=== PATIENT | male | born 1965 | race African-American/Black ===

== ENCOUNTER 2017-06-16 13:44 | Observation (INO) | payer OTHER ==
[2017-06-16 14:37] LABS: Troponin I Less than 0.010 ng/mL (< 0.028)
--- NOTE | 2017-06-16 15:08 | HP ---
PRIMARY CARE PHYSICIAN: Dr. Deshaun Moore. REASON FOR ADMISSION: Transfer from [facility] for chest pain. HISTORY OF PRESENT ILLNESS: A 52-year-old -[place] male who initially went to [facility] for evaluation of chest pain. Patient reports that at workplace, he initially felt tin gling and numbness sensation in his left arm and subsequently he was experiencing left sided of chest pressure. He did not have any associated nausea, vomiting or diaphoresis, but chest pressure was so intense that lasted for about 10-15 minutes. Patient went upstairs at work place to get his aspirin from medical department and that did not increase or decrease his pain. The patient's officer told him to go to ER for evaluation. When he arrived to the emergency room, his pain was subsided. At [facility], he was hemodynamically stable. Patient reports that for the last couple of days, he was having upper respi ratory symptoms, but he was not taking any medication. He denies any acid reflux. He denies any epi gastric pain. He denies any fever, chills, cough, shortness of breath. At [facility], he was given Lovenox 1 mg per kg, aspirin 162 mg, and nitro patch. S ubsequently considering NSTEMI, the patient was transferred to our hospital for further evaluation. Patient reports that a couple of years ago, he went to the emergency room and at that time, he had ex actly similar symptoms and he was instructed to get stress test done, but patient reports that he nev er had any stress test done and he did not follow up with the primary care physician. He is a smoker and he uses periodic marijuana as well as he drinks beer every day basis. He has family history of DE to his father and he is not knowing his cholesterol status. REVIEW OF SYSTEMS: The following complete review of systems was negative, unless otherwise mentioned in the HPI or below: Constitutional: Weight loss or gain, ability to conduct usual activities. Skin: Rash, itching. Eyes: Double vision, pain. ENT/Mouth: Nose bleeding, neck stiffness, pain, tenderness. Cardiovascular: Palpitations, dyspnea on exertion, orthopnea. Respiratory: Shortness of breath, wheezing, cough, hemoptysis, fever or night sweats. Gastrointestinal: Poor appetite, abdominal pain, heartburn, nausea, vomiting, constipation, or diarr hea. Genitourinary: Urgency, frequency, dysuria, nocturia. Musculoskeletal: Pain, swelling. Neurologic/Psychiatric: Anxiety, depression. Allergy/Immunologic: Skin rash, bleeding tendency. Please see my HPI for pertinent positives and negatives. All other review of systems reviewed and ne gative except as mentioned in the HPI. ALLERGIES: No known drug allergies. CURRENT HOME MEDICATIONS: The patient is not taking any prescribed or non-prescribed medication. PAST MEDICAL HISTORY: Patient denies any previous medical history. PAST SURGICAL HISTORY: Right knee replacement. PAST PSYCHIATRIC HISTORY: Reviewed and negative. SOCIAL HISTORY: Patient smokes about half pack per day for the last several years. He drinks alcoho l 3-4 beers on a daily basis. He smokes marijuana periodically. He denies any other illicit drug ab use. FAMILY HISTORY: Positive for coronary artery disease to his father, diabetes, hypertension runs josé miguel g several family members. EMERGENCY ROOM COURSE: Patient is given Lovenox 1 mg per kg, aspirin 162 mg and nitropatch at [facility]. PHYSICAL EXAMINATION: VITAL SIGNS: Here in our emergency room, blood pressure 114/86, pulse 79, respiratory rate 22, tempe rature 98.2, saturation 96% on room air, weight 78.02 kilograms. GENERAL: Patient is currently alert, awake, no obvious acute distress. HEAD: Normocephalic, atraumatic. EYES: Pupils round, reactive to light. Extraocular muscles intact. ENT: Oropharynx within normal limits. Moist mucous membranes. No oral lesions. No pharyngeal eryt valeria, no exudates. NECK: Supple, no JVD, no thyromegaly, no carotid bruit, no jugular venous distention. LUNGS: Clear to auscultation without any rhonchi or rales. CARDIAC: S1, S2 regular. No murmur, no gallop, no rub. ABDOMEN: Soft, bowel sounds present, nontender, nondistended. No organomegaly, no mass, no suprapub ic tenderness. BACK: Unremarkable, no CVA tenderness. EXTREMITIES: Upper extremity: Passive movement of all joints are normal. Lower extremities: No ed autumn. Good peripheral pulsation. SKIN: No skin rash. HEMATOLOGICAL: No lymphadenopathy. PSYCHIATRIC: Normal affect. SIGNIFICANT LABORATORY DATA AND IMAGING: EKG showing sinus arrhythmia, LVH, no acute ischemic change s noted. Chest x-ray based on my review, no acute cardiopulmonary process. CBC: WBC 5.2, hemoglobi n 15.0, platelets 193. INR 1.0. PT 13.1. aPTT 27.8. BMP: Sodium 138, potassium 4.2, chloride 107 , carbon dioxide 19, anion gap 16, BUN 15, creatinine 0.86, glucose 94, calcium 8.7, magnesium 2.0. LFT: AST 27, ALT 23, alkaline phosphatase 98, albumin 3.9, CK-MB 7.5, troponin 0.014. BNP 32.7. ASSESSMENT AND PLAN: 1. Acute chest pain. The patient's chest pain description is atypical. He has few risk factors for coronary artery disease including his age, family history and smoking. He does not know his cholest cecil status. He is extremely unlikely to be thromboembolic disorder. At this point, our main concer n is needs to rule out cardiac etiology. His CK-MB is elevated, but I will check total CK level to r ule out any associated rhabdomyolysis. We will do serial cardiac enzymes x3 and if cardiac enzymes a re negative, then this patient will need stress testing tomorrow. We will keep him n.p.o. after midn ight. We will check lipid profile for risk stratification. Meanwhile, we will continue with aspirin 325 mg p.o. daily, nitro patch q.8 hourly if blood pressure permits. 2. Tobacco abuse disorder. Smoking cessation counseling given. Healthy lifestyle measures discusse d with the patient. 3. Alcohol abuse. Patient is counseled to avoid alcohol products. 4. Marijuana abuse. Patient is given counseling to avoid marijuana abuse. 5. Elevated CK-MB, we will check total CK and do serial cardiac enzymes. 6. Deep venous thrombosis prophylaxis not needed, because we are expecting discharge in 24 hours. 7. Gastrointestinal prophylaxis, Pepcid 20 mg p.o. b.i.d. 8. Code status: The patient is full code. Disposition planned tomorrow based on stress test result.
[2017-06-16] MEDS ORDERED: Artificial Tear Sol 15 ML BOT EA EYE PRN (15:41)
[2017-06-16] MEDS ORDERED: HYDROcodone/Acetaminophen 5/325 mg Tablet PO PRN (15:41)
[2017-06-16] MEDS ORDERED: Acetaminophen 325 MG TAB PO PRN (15:41)
[2017-06-16] MEDS ORDERED: Nitroglycerin 0.4 MG TAB (25 Tab Bottle) SL PRN (15:41)
[2017-06-16] MEDS ORDERED: Milk Of Magnesia 30 ML UDCUP PO PRN (15:41)
[2017-06-16] MEDS ORDERED: Chloraseptic Spray 180 ml Bottle PO PRN (15:41)
[2017-06-16] MEDS ORDERED: Loratadine 10 MG TAB PO PRN (15:41)
[2017-06-16] MEDS ORDERED: Loperamide HCl 2 MG CAP PO PRN (15:41)
[2017-06-16] MEDS ORDERED: Ondansetron HCl/PF 4 MG/2 ML Vial IVP PRN (15:41)
[2017-06-16] MEDS ORDERED: Sodium Chloride 0.65% Nasal 44 ML BOT EA NARE PRN (15:41)
[2017-06-16] MEDS ORDERED: Eucerin (Mineral Oil/Petrolatum,White) 30 gm Jar TOP PRN (15:41)
[2017-06-16] MEDS ORDERED: Diabetic Tussin 200 MG/10 ML UDCUP PO PRN (15:41)
[2017-06-16] MEDS ORDERED: Zolpidem Tartrate 5 MG TAB PO PRN (15:41)
[2017-06-16] MEDS ORDERED: Senokot 8.6 MG TAB PO PRN (15:41)
[2017-06-16] MEDS ORDERED: Ondansetron ODT 4 MG TAB PO PRN (15:41)
[2017-06-16] MEDS ORDERED: Mag-Al 1200 mg/1200 mg/30 ML UDCUP PO PRN (15:41)
[2017-06-16] MEDS ORDERED: hydrALAZINE 20 MG/ML VIAL SLOW IVP PRN (15:41)
[2017-06-16 15:56] VITALS: BMI 23.8
[2017-06-16 17:33] LABS: Troponin I Less than 0.010 ng/mL (< 0.028)
[2017-06-16] MEDS: Famotidine 20 MG TAB PO SCH (19:41)
[2017-06-16 20:19] LABS: Troponin I Less than 0.010 ng/mL (< 0.028)
[2017-06-16] MEDS: Nitroglycerin 2% Ointment 1 INCH/1 GM Packet TOP SCH (23:02)
[2017-06-17 04:53] LABS: Anion Gap 9 mmol/L (10-20); BUN (Urea Nitrogen) 18 mg/dL (8.9-20.6); Calc. Creatinine Clearance 110 mL/min (70-130); Calcium 8.7 mg/dL (7.8-10.44); Carbon Dioxide 24 mmol/L (22-29); Chloride 107 mmol/L (98-107); Cholesterol 163 mg/dl (< 200 Desired); Estimated GFR-MDRD Greater than 90; LDL Cholesterol, Calculated 93 mg/dL
[2017-06-17 05:03] LABS: Band 3 % (5-11); Hematocrit 43.7 % (42.0-52.0); Neutrophil 49 % (42-75); Reactive Lymphocytes 1 % (0-10); Red Blood Cell (RBC) Count 4.53 mill/uL (4.70-6.10); White Blood Cell (WBC) Count 4.8 thou/uL (4.8-10.8)
[2017-06-17] MEDS: Nitroglycerin 2% Ointment 1 INCH/1 GM Packet TOP SCH (06:45)
[2017-06-17] MEDS ORDERED: Aspirin 325 MG TAB PO SCH (09:00)
[2017-06-17 11:39] VITALS: BP 128/72; TEMP 98
--- NOTE | 2017-06-17 12:30 | DIS ---
DATE OF ADMISSION: 06/16/2017 DATE OF DISCHARGE: 06/17/2017 PRIMARY CARE PHYSICIAN: Deshaun Moore M.D. DISCHARGE DISPOSITION: Home. PRIMARY DISCHARGE DIAGNOSES: Chest pain, ruled out acute coronary syndrome, rhabdomyolysis, upper re spiratory infection. SECONDARY DISCHARGE DIAGNOSES: Alcohol abuse, cannabinoid abuse, tobacco abuse. PRIMARY PROCEDURE/OPERATION: None. RADIOLOGICAL INVESTIGATION: Chest x-ray was normal. Stress test negative. SIGNIFICANT LABORATORY DATA: WBC 4.8, hemoglobin 14.7, platelets 178. Sodium 136, potassium 4.3, B UN 18, creatinine 0.88, LDL 93, triglyceride 97, cholesterol 163, CK 553. DISCHARGE MEDICATIONS: None. CONTRAINDICATIONS: None. CODE STATUS: FULL CODE. INPATIENT CONSULTANTS: None. ALLERGIES: No known drug allergy. DISCHARGE PLAN: Post hospital, the patient will follow up with primary care physician in 1 week. HOSPITAL COURSE: A 52-year-old male while at work, he was having chest pain and that is why his boss sent him to ER for evaluation. His chest pain description was atypical. He had risk factors for co ronary artery disease including his family history, age and smoking. He was also having upper respir atory infection and he had elevated total CK. He was initially evaluated at [facility] and then he was sent to our emergency room for further evaluation. We did serial cardiac enzymes . His troponin remained negative. He had CK-MB elevated, but total CK was elevated and that was con tributing to his CK-MB evaluation. We did stress test and stress test came back normal. We provided patient education about avoidance of smoking marijuana and alcohol abuse. The patient is overall doing very well. Currently, he is asymptomatic. His telemetry remained artie l. The patient is seen and examined at bedside today. All review of systems reviewed with him and n egative. PHYSICAL EXAMINATION: VITAL SIGNS: Currently, temperature 98.0, pulse 84, respiratory rate 18, saturation 98%, blood press ure 128/72, weight 178 pounds. GENERAL: The patient is currently alert, awake, in no acute distress. HEAD: Normocephalic, atraumatic. LUNGS: Clear to auscultation without any rhonchi or rales. CARDIAC: S1, S2 regular without a murmur. ABDOMEN: Soft and benign. EXTREMITIES: No edema. NEUROLOGIC: Nonfocal examination. The patient is medically stable for discharge today.
[2017-06-17] MEDS: Famotidine 20 MG TAB PO SCH (12:58)
--- NOTE | 2017-06-17 15:00 | NM ---
NUCLEAR MEDICINE CARDIAC PERFUSION EXAMINATION WITH EJECTION FRACTION: HISTORY: A 52-year-old male with chest pain. TECHNIQUE: A 2-day nuclear medicine cardiac perfusion examination was performed. Rest images were obtained usin g 10.1 mCi of Technetium 99m sestamibi. Stress images were obtained giving 32 mCi of sestamibi at th e peak of exercise on a treadmill using a Augie protocol. The patient achieved 85% maximum predicted heart rate. FINDINGS: Tomographic images showed no fixed or reversible perfusion defects. Gated images show normal wall mo tion with an ejection fraction of 56%. EDV is 124 mL. LHR is 0.4. TID is 1.0. IMPRESSION: No evidence of ischemia. POS: RICHA
== END 2017-06-17 13:09 | disposition home or self-care (01) ==
LOC: ERS 13:44 → 2SW 15:31
PROVIDERS: ADMIT Internal Medicine; ATTEND Internal Medicine
DX: R07.89 Other chest pain (principal); F17.210 Nicotine dependence, cigarettes, uncomplicated; F10.10 Alcohol abuse, uncomplicated; F12.10 Cannabis abuse, uncomplicated; Z96.651 Presence of right artificial knee joint; Z82.49 Family history of ischemic heart disease and other diseases of the circulatory system
CPT/HCPCS: 36415; 78452; 80048; 80061; 84443; 85025; 93005; 93017; 99406; A9500; G0378